=== PATIENT | male | born 1950 | race Caucasian/White ===

== ENCOUNTER 2017-03-31 06:38 | Day surgery (SDC) | payer MEDICARE, MEDICAID ==
[~2017-03-31] VITALS: Ht 180.3 cm; Wt 106.5 kg
[2017-03-31] VITALS (7 sets, daily range): BP systolic 119–128; BP diastolic 75–79; PULSE 50–58; RESP 17–18; TEMP 97.8–98.5; O2SAT 97–100
[~2017-03-31 06:38] MED LIST: ASPI81TA82 PO; CARV6.252 PO; ENAL20TA PO; GLYB5TAB3 PO; HYDR12.56 PO; NITR4.9S3 SL; TICA90 PO
[2017-03-31] MEDS ORDERED: NS 1000P @30 MLS/HR (KVO) IV SCH (07:00)
[2017-03-31] MEDS ORDERED: AMLO5TAB2 PO (07:20)
[2017-03-31] MEDS ORDERED: BUSP15TA PO (07:20)
[2017-03-31] MEDS ORDERED: GLIM2TAB PO (07:20)
[2017-03-31] MEDS ORDERED: [UNRECOGNIZED DRUG - CODE] PO (07:20)
[2017-03-31] MEDS ORDERED: ENAL20TA PO (07:20)
[2017-03-31] MEDS ORDERED: CARV12.52 PO (07:20)
[2017-03-31] MEDS ORDERED: PROB1CAP12 PO (07:20)
[2017-03-31] MEDS ORDERED: FLUO40CA PO (07:20)
[2017-03-31] MEDS ORDERED: HYDR12.57 PO (07:20)
[2017-03-31] MEDS ORDERED: ASPI-110 PO (07:20)
[2017-03-31] MEDS ORDERED: PLAV75TA29 PO (07:20)
[2017-03-31 07:26] LABS: AUTOMATED NEUTROPHIL # 3.9 TH/MM3 (1.8-7.7); BASOPHIL # 0.1 TH/MM3 (0-0.2); BASOPHIL % 1.1 % (0.0-2.0); EOSINOPHIL # 0.2 TH/MM3 (0-0.4); EOSINOPHIL % 2.8 % (0.0-4.0); HEMATOCRIT 41.2 % (39.0-51.0); HEMO FLAGS DIFF FINAL; LYMPH % 32.3 % (9.0-44.0); LYMPHOCYTE # 2.5 TH/MM3 (1.0-4.8); MEAN CELL VOLUME 90.7 FL (80.0-100.0); MEAN CORPUSCULAR HEMOGLOBIN 29.4 PG (27.0-34.0); MEAN CORPUSCULAR HGB CONC 32.4 % (32.0-36.0); MONO % 13.6 % (0.0-8.0); NEUT % 50.2 % (16.0-70.0); PLATELET COUNT 236 TH/MM3 (150-450); RED BLOOD COUNT 4.54 MIL/MM3 (4.50-5.90); RED CELL DISTRIBUTION WIDTH 13.5 % (11.6-17.2); WHITE BLOOD COUNT 7.7 TH/MM3 (4.0-11.0)
[2017-03-31 07:34] LABS: APTT (PATIENT) 27.3 SEC (24.3-30.1); PROTHROMBIN TIME - PATIENT 11.2 SEC (9.8-11.6)
[2017-03-31 07:41] LABS: BICARBONATE 26.4 MEQ/L (21.0-32.0); POTASSIUM 4.1 MEQ/L (3.5-5.1)
[2017-03-31] MEDS ORDERED: HEPARIN-NS/PF INJ 500 ML ONE (08:25)
[2017-03-31] MEDS ORDERED: MIDAZOLAM HCL 2 MG/2 ML VIAL ONE (08:34)
[2017-03-31] MEDS ORDERED: VERAPAMIL HCL 5 MG/2 ML VIAL ONE (08:51)
[2017-03-31] MEDS ORDERED: HEPARIN SODIUM - IV 10,000 UNITS/10 ML VIAL ONE (08:51)
[2017-03-31] MEDS ORDERED: IOHEXOL 350 MG/ML 100 ML BTL (for Cath Lab) OTHER ONE (08:55)
[2017-03-31] MEDS ORDERED: IOHEXOL 350 MG/ML 50 ML BTL (for Cath Lab) OTHER ONE (08:55)
[2017-03-31] MEDS ORDERED: TIROFIBAN INFUSION INJ 250 ML IV ONE (09:22)
[2017-03-31] MEDS ORDERED: CLOPIDOGREL 300 MG TAB ONE (09:38)
[2017-03-31] MEDS ORDERED: SODIUM CHLOR 0.9% 1000 ML INJ 1,000 ML IV SCH (09:50)
[2017-03-31] MEDS ORDERED: TIROFIBAN INFUSION INJ 250 ML IV SCH (09:50)
--- NOTE | 2017-03-31 09:51 | CATHPROC ---
[employer] HIS Report Study Information Study Number Admission Scheduled Start Study Start [id number] Mar 31 2017 6:38AM 03/31/2017 Mar 31 2017 8:07AM [facility] Catheterization Admit Source Facility Department Other [facility] - Upfitter Physician and Clinical Staff Initial Elvin Rios Yardage Caller jP RN, Stephen Recorder Danyel Brooke,PIPE LINER(BS) Scrub Petty Shields,RT(R) (BS) Procedures Performed Procedure Location (Site) Vessel Name Coronary Angiograms LCA Left Coronary Coronary Angiograms RCA Right Coronary Drug Eluting Inflatio CIRC Dist CIRC L Heart Cath LV Gram-hand inj. LV LV Ventricle Wire insertion Fem Art (right) Femoral Art Equipment Time Drive In Teller Description Size Mfg Part Number Used/Scraped [id number] 09:25 PAK CRITICAL CARE WIRE, [employer] PROWATER 180CM 180CM Used *[id number] TRANSDUCER, TRUWAVE [id number] 08:34 WILSON JONES * Used W/STOCKCOCK *[id number] [id number] *[id number] 534-623T *[id number] [id number] *[id number] *[id number] 08:34 MALLINCKRODT SYRINGE, ANGIOMAT 150ML 150ML *[id number] Used 2S MEDICAL CONCEPT DRAPE, RADIAL FEMORAL FULL 08:34 * [id number] *[id number] Used DEVELOPMENT BODY [id number] 08:34 [employer] IND[employer]ES PACK, CCL CUSTOM * Used *[id number] 08:34 [employer] SUPPORT, ARTERIAL ADULT [id number] Used [id number] 08:34 MEDLINE PACER PEN, SKIN DUAL W/ RULER * Used *[id number] STENT, 2.25 12 RESOLUTE [id number] 09:31 MEDTRONIC 2.25 12 Used INTEGRITY RX *[id number] 09:32 Face++ 30 HANNA INDEFLATOR Used *[id number] BAND, RADIAL COMPRESSION TR [id number] 09:39 Face++ 24CM Used SHORT 24 *[id number] SHEATH, FR6 RADIAL PRELUDE 08:34 Face++ FR 6 [id number] Used EASE 11CM [id number] 08:34 Face++ WIRE, EXCHANGE 260CM 3MMJ 260CM Used *[id number] 08:34 NAMIC MANIFOLD, 4 PORT * Used *[id number] 08:34 NYCOMED OMNIPAQUE, 350 MG, 150ML 150ML [id number] Used [id number] 08:34 [place] [employer] BL[employer]ET,WARM AIR CCL * Used *[id number] CATHETER, FR5 OPTITORQUE [id number] 09:04 [employer] FR 5 Used RADIAL TIG 4.0 *[id number] Equipment Model, Serial, Lot Number and Expiration Data Description Model Number Serial Number Lot Number Expiration Date STENT, 2.25 12 RESOLUTE [id number] 06-28-2018 INTEGRITY RX History: Current Medications Medication Dosage/Unit Route Frequency Last Date/Time Taken ASA Beta Kali PLAVIX History: Allergies Allergy Reaction No Known Allergies History: Risk Factors Family History of Hypertension Dyslipidemia Previous CT Previous Heart Failure Premature CAD Yes Yes Yes Yes No Prior Valve Prior PCI Prior PCIDate Prior CABG Surgery No Yes 06/26/2016 No Cerebrovascular Peripheral Artery Chronic Lung On Dialysis Diabetes Diabetes Therapy Disease Disease Disease No No No No Yes Oral History: Stress Tests Stress or Imaging Studies Performed No History: Other Current Smoker No Labs Hgb (g/dl) Hct (%) WBC (l/cumm) Platelets (thousands) 11.60-17.00 35.00-51.00 4.00-11.00 150.00-450.00 13.4 41.2 7.7 236 Glucose (mg/dl) BUN (mg/dl) Creatinine (mg/dl) BUN:Creatinine (1:x) 74.00-106.00 7.00-18.00 0.50-1.30 10.00-20.00 135 21 0.9 23.3 Na (meq/l) K (meq/l) 136.00-145.00 3.50-5.10 138 4.1 INR (PTT:PT) 0.90-1.10 1 CPK-MB (ng/ML) 0.50-3.60 Not Drawn Medication Medication Total Dose (Bolus/Oral) Medication Total Dosage/Unit 1% XYLOCAINE 10 mL AGGRASTAT BOLUS 54 mL HEPARIN 4000 units OXYGEN 3 l/min PLAVIX 300 mg RADIAL COCKTAIL 5 mL (Bolus) Medications (Bolus/Oral) Medication Time Given Dosage/Unit Administered By Reason 1% XYLOCAINE 03/31/2017 8:59:40 AM 10 mL Elvin Vergara 10 mL 1% XYLOCAINE given in lab by Elvin Vergara in Right Radial via Subcutaneous. Ordered by Janell Vergara. Ntg 200mcg Verapamil 2.5mg Heparin RADIAL COCKTAIL 03/31/2017 9:02:32 AM 5 mL (Bolus) Elvin Vergara 2500U 5 mL (Bolus) RADIAL COCKTAIL given in lab by Elvin Vergara via Radial. Using [Solution Name]. Ordered by Elvin Vergara. Reason: Ntg 200mcg Heparin 2500U. OXYGEN 03/31/2017 9:03:44 AM 3 l/min Stephen Oliva RN 3 l/min OXYGEN given in lab by Stephen Oliva RN via Nasal. Ordered by Elvin Vergara. HEPARIN 03/31/2017 9:22:00 AM 4000 units Stephen Oliva RN 4000 units HEPARIN given in lab by Stephen Oliva RN in Left Forearm via Peripheral IV. Ordered by Elvin Short. AGGRASTAT BOLUS 03/31/2017 9:25:12 AM 54 mL Stephen Oliva RN 54 mL AGGRASTAT BOLUS given in lab by Stephen Oliva RN in Left Forearm via Peripheral IV. Ordered by Elvin Sharp. PLAVIX 03/31/2017 9:40:00 AM 300 mg Stephen Oliva RN 300 mg PLAVIX given in lab by Stephen Oliva RN via Oral. Ordered by Elvin Vergara. Medication (Drip) Medication Time Given Dosage/Unit Concentration/Unit Diluent (ml) Solution AGGRASTAT DRIP 03/31/2017 9:29:05 AM 0.152 mcg/kg/min 12.5 mg 250 NaCl .9 0.152 mcg/kg/min AGGRASTAT DRIP given in lab by Stephen Oliva RN in Left Forearm via Peripheral IV. Pu mp/Drip Flow = 19.5 ml/hr using NaCl .9 with a concentration of 12.5 mg in 250 ml. Ordered by Elvin Vergara. IV Solutions 03/31/2017 8:24:43 AM 0 mL (IV) 500 NaCl .9 Patient arrived on IV Solutions in Left Forearm via Peripheral IV. Pump/Drip Flow = 20 ml/hr using Na Cl .9. Ordered by Elvin Vergara. Initial Case Assessment Cardiovascular HR Rhythm NIBP Chest Pain 51 SINUS ZEESHAN 129/79 0 Edema Present Skin color Skin None Normal Warm Dry Circulatory - Right Pulses Dorsalis Pedis Femoral Radial d 2 2 Scale (0,1,2,3,4,d) Circulatory - Left Pulses Dorsalis Pedis Femoral Radial d 2 Scale (0,1,2,3,4,d) Circulatory - Lower Extremities Color Lower Right Color Lower Left Normal Normal Neurological State Oriented to time-place- Alert Moves all extremities person Respiration - General Respiration Rate SpO2 (%) (B/min) 16 96 Final Case Assessment Cardiovascular HR Rhythm NIBP Chest Pain 51 SINUS ZEESHAN 107/73 0 Edema Present Skin color Skin None Normal Warm Dry Circulatory - Right Pulses Dorsalis Pedis Femoral Radial d 2 2 Scale (0,1,2,3,4,d) Circulatory - Left Pulses Dorsalis Pedis Femoral Radial d 2 Scale (0,1,2,3,4,d) Circulatory - Lower Extremities Color Lower Right Color Lower Left Normal Normal Neurological State Oriented to time-place- Alert Moves all extremities person Respiration - General Respiration Rate SpO2 (%) (B/min) 16 96 Chronological Log Time Study Chronological Log 8:24:23 Patient arrived via Bed. 8:24:24 Patient Name, D.O.B, / Armband Verified By R.N. 8:24:25 Consent signed by the physician and the patient and verified by the [facility] staff. 8:24:26 Pre-op and post- op instructions given; patient acknowledges understanding of instructions. 8:24:27 Verbal Stimulation=2 Physical Stimulation=2 Airway=2 Respiration=2 TOTAL=8. (0=absent, 1=li mited, 2=present) 8:24:34 Allens test performed on the right radial and ulnar artery. 8:24:38 Patient has been NPO for Less than 6Hrs. 8:24:38 Skin Breakdown- 8:24:39 Patient Warmer Placed on the Table. 8:24:42 A # 20 IV was noted in the Forearm (left). Grade = 0 Patient arrived on IV Solutions in Left Forearm via Peripheral IV. Pump/Drip Flow = 20 ml/hr us ing NaCl .9. Ordered by 8:24:43 Elvin Vergara. 8:24:44 History and physical on the chart or being dictated. Assessment: Initial Case, HR=51 BPM, Rhythm=SINUS ZEESHAN, JGTQ=695/79 mmhg, Chest Pain=0, Edema=N one, Color=Normal, Skin = Warm, Dry Right Pulses: Joshua Ped=d, Femoral=2, Radial=2 Left Pulses: Joshua Ped=d, Femoral=2 8:24:45 Lower Right Extremities: Color=Normal Lower Left Extremities: Color=Normal Neurological: State=Alert, Ox3, ORTEZ Respiration: Resp=16 B/min, SpO2=96 % Vitals capture started with the following parameters, Patient=Adult, Interval=5 min, Initial Pre yrmkj=977 mmHg, 8:30:42 Deflation Rate=5 mmHg 8:31:21 HR=64 bpm, KROL=519/79 mmhg, SpO2=99.0 %, Resp=0 B/min, Pain=0, Su=10, Cote=2 8:36:18 HR=51 bpm, DLFE=122/80 mmhg, SpO2=98.0 %, Resp=14 B/min, Pain=0, Su=10, Cote=2 8:37:21 Reference ECG taken 8:37:56 Bilateral groins prepped with 2% chlorhexidine, and with a 3 min. waiting time. 8:41:17 HR=55 bpm, GCUO=610/83 mmhg, SpO2=98.0 %, Resp=14 B/min, Pain=0, Su=10, Cote=2 8:46:18 HR=53 bpm, VOBQ=556/82 mmhg, SpO2=99.0 %, Resp=7 B/min, Pain=0, Su=10, Cote=2 8:49:00 MD paged 8:51:17 HR=56 bpm, RSTL=320/90 mmhg, SpO2=97.0 %, Resp=10 B/min 8:51:56 Pressure channel 1 zeroed. 8:55:10 MD arrived. 8:56:18 HR=58 bpm, UGPF=939/87 mmhg, Resp=13 B/min, Pain=0, Su=10, Cote=2 Time Out. Correct patient, correct procedure,correct physician, power injector not loaded with c ontrast with surgical 8:59:00 team present. Time Out Concurred by MD, individual staff in procedure 8:59:25 Case Start 8:59:40 10 mL 1% XYLOCAINE given in lab by Elvin Vergara in Right Radial via Subcutaneous. Ordered by Elvin Vergara. 9:00:33 Access site was RIGHT Radial Artery. 9:01:19 HR=52 bpm, UAPF=678/80 mmhg, TaO1=371.0 %, Resp=14 B/min, Pain=0, Su=10, Cote=2 9:02:07 Reference ECG taken A SHEATH, FR6 RADIAL PRELUDE EASE 11CM FR 6 was advanced into the Radial (right) using the Percu taneous 9:02:29 technique. 5 mL (Bolus) RADIAL COCKTAIL given in lab by Elvin Vergara via Radial. Using [Solution Name]. Ord ered by Ursula 9:02:32 Elvin. Reason: Ntg 200mcg Heparin 2500U. A CATHETER, FR5 OPTITORQUE RADIAL TIG 4.0 FR 5 was advanced over a wire. OMNIPAQUE, 350 MG, 150M L 150ML 9:03:03 was used for injections. 9:03:44 3 l/min OXYGEN given in lab by Stephen Oliva RN via Nasal. Ordered by Elvin Vergara. Recorded Pressure: Ao, HR=55, Condition=Condition 1 9:05:01 (Aorta) Ao 87/56/70 9:06:14 The LCA was injected and visualized at various angles. OMNIPAQUE, 350 MG, 150ML 150ML used. 9:06:22 HR=56 bpm, NIBP=95/64 mmhg, SpO2=93.0 %, Resp=12 B/min, Pain=0, Su=10, Cote=2 After removing the current catheter a JR 5.0 INFINITI CATHETER FR 6 was advanced over a WIRE, EX CHANGE 260CM 9:07:48 3MMJ 260CM. 9:11:19 HR=53 bpm, NIBP=92/51 mmhg, Resp=9 B/min, Pain=0, Su=10, Cote=2 After removing the current catheter a CATHETER, FR5 OPTITORQUE RADIAL TIG 4.0 FR 5 was advanced over a WIRE, 9:12:32 EXCHANGE 260CM 3MMJ 260CM. After removing the current catheter a AR MOD INFINITI CATHETER FR 6 was advanced over a WIRE, EX CHANGE 260CM 9:15:48 3MMJ 260CM. 9:16:18 HR=49 bpm, SFGL=741/57 mmhg, SpO2=98.0 %, Resp=7 B/min, Pain=0, Su=10, Cote=2 9:18:33 The RCA was injected and visualized at various angles. OMNIPAQUE, 350 MG, 150ML 150ML used. After removing the current catheter a MPA-2 INFINITI CATHETER FR 6 was advanced over a WIRE, EXC HANGE 260CM 9:20:10 3MMJ 260CM. 9:20:20 The LV was manually injected with 8 cc's and visualized. OMNIPAQUE, 350 MG, 150ML 150ML used . 9:21:17 HR=61 bpm, ZFDG=583/74 mmhg, SpO2=98.0 %, Resp=13 B/min, Pain=0, Su=10, Cote=2 Recorded Pressure: LV, HR=55, Condition=Condition 1 9:21:42 (Left Ventricle) LV 103/7/12 9:22:00 4000 units HEPARIN given in lab by Stephen Oliva RN in Left Forearm via Peripheral IV. Ordere d by Elvin Vergara. Recorded Pressure: LV, Ao, HR=56, Condition=Condition 1 9:22:06 (Left Ventricle) LV 106/6/14, (Aorta) Ao 99/62/78 After removing the current catheter a XB 3.5 GUIDE CATHETER FR 6 was advanced over a WIRE, EXCHA NGE 260CM 9:22:48 3MMJ 260CM. 9:25:12 54 mL AGGRASTAT BOLUS given in lab by Stephen Oliva RN in Left Forearm via Peripheral IV. Ord ered by Elvin Vergara. 9:26:25 HR=56 bpm, NIBP=97/62 mmhg, SpO2=99.0 %, Resp=12 B/min, Pain=0, Su=10, Cote=2 9:28:12 A WIRE, ASAHI PROWATER 180CM 180CM was inserted via Fem Art (right). 0.152 mcg/kg/min AGGRASTAT DRIP given in lab by Stephen Oliva RN in Left Forearm via Peripheral I V. Pump/Drip Flow 9:29:05 = 19.5 ml/hr using NaCl .9 with a concentration of 12.5 mg in 250 ml. Ordered by Elvin Vergara. 9:30:13 Interventional wire has crossed the lesion 9:31:19 HR=52 bpm, DINN=796/63 mmhg, Resp=12 B/min, Pain=0, Su=10, Cote=2 A STENT, 2.25 12 RESOLUTE INTEGRITY RX 2.25 12 was advanced through a XB 3.5 GUIDE CATHETER FR 6 over a 9:31:39 WIRE, [employer] PROWATER 180CM 180CM. A STENT, 2.25 12 RESOLUTE INTEGRITY RX 2.25 12 was deployed using a 30 HANNA INDEFLATOR at 14 atmo spheres 9:31:40 for 20 seconds in the CIRC Dist. 9:32:00 Activated Clotting Time Drawn 9:33:42 Delivery device removed 9:34:51 Wire removed 9:34:53 Catheter was removed 9:36:14 ACT (Normal Range 90-180) = 411 9:36:19 HR=56 bpm, VQFF=020/73 mmhg, AaM0=903.0 %, Resp=12 B/min, Pain=0, Su=10, Cote=2 9:36:53 Case End Assessment: Final Case, HR=51 BPM, Rhythm=SINUS ZEESHAN, GWLU=698/73 mmhg, Chest Pain=0, Edema=Non e, Color=Normal, Skin = Warm, Dry Right Pulses: Joshua Ped=d, Femoral=2, Radial=2 Left Pulses: Joshua Ped=d, Femoral=2 9:37:03 Lower Right Extremities: Color=Normal Lower Left Extremities: Color=Normal Neurological: State=Alert, Ox3, ORTEZ Respiration: Resp=16 B/min, SpO2=96 % Radial Compression Device Used. 17 mLs of air placed in BAND, RADIAL COMPRESSION TR SHORT 24 24C M. Affected 9:38:41 hand ~O2 SATURATION~ % O2 saturation. 9:38:55 Sterile dressing applied to site 9:38:56 No case complications noted. 9:38:57 Cine recording checked. 9:39:08 Bedside Report will be given. 9:39:09 Implantable Device card placed in patient's chart. 9:39:12 Contrast Scanned 9:39:16 A Left Heart Cath was performed. 9:40:00 Activated Clotting Time Drawn 9:40:00 300 mg PLAVIX given in lab by Stephen Oliva RN via Oral. Ordered by Elvin Vergara. 9:41:50 HR=56 bpm, ARTG=492/77 mmhg, SpO2=93.0 %, Resp=3 B/min, Pain=0, Su=10, Cote=2 9:42:31 ACT (Normal Range 90-180) = 280 9:47:35 Patient moved to stretcher 9:47:38 Vitals capture stopped. End Study - Contrast Media Used In Study Contrast Total Opened (mL) Total Used (mL) Total Wasted (mL) Omnipaque 120 120 0 End Study - Maximum Contrast Load Max Contrast Load (mL) 592.2 End Study - Radiation Exposure Fluoro Time (minutes) 13.6 End Study - Patient Disposition Complications Transferred To Interventional Outcome No Telemetry Bed successful
[2017-03-31] MEDS ORDERED: SODIUM CHLORIDE 0.9% FLUSH 5 ML FLUSH IVF PRN (10:00)
--- NOTE | 2017-03-31 11:09 | MA ---
cc: KVNG ISAACS M.D. DATE: 03/31/2017 PROCEDURE Left heart catheterization, selective coronary angiography, left ventriculography, primary stenting of the left circumflex. PROCEDURE NOTE The patient was brought to the cardiac catheterization laboratory in a fasting state after having signed informed consent. The right radial region was prepped and draped as per policy and anesthetized with 1% lidocaine. Arterial access was obtained via the right radial artery and a 6-Georgian sheath placed. Coronary arteriography was performed using a [place] catheter. Left ventriculography was done using a multipurpose catheter. Percutaneous coronary intervention was done as described below. There were no apparent immediate complications. HEMODYNAMIC DATA Left ventricle 106 with an end-diastolic pressure of 14. Aorta 99/62 with a mean of 78. There was no significant transvalvular aortic gradient on pullback of the pigtail catheter. CORONARY ARTERIOGRAPHY The left main is a large vessel with minimal distal disease. The left anterior descending demonstrates either one of two stents proximally. There is minimal restenosis of the stents. In the proximal and mid LAD there are minimal diffuse luminal irregularities. The very, very distal LAD, at the apex, has 50% stenosis. There is a medium-sized branching ramus intermedius which has a stent in its more lateral branch, and the stent is widely patent. There is diffuse proximal disease in the more medial branch of the ramus intermedius. The left circumflex is a medium-sized vessel demonstrating a stent in its distal portion. The stent is widely patent. Just prior to the stent the distal left circumflex has 70% stenosis. Near the ostium of the left circumflex there is 30% stenosis. The right coronary artery is a medium-sized dominant vessel with diffuse proximal disease resulting in up to 50% stenosis. The rest of the vessel has minimal luminal irregularities. LEFT VENTRICULOGRAPHY Contrast injection of the left ventricle reveals no segmental wall motion abnormalities. Ejection fraction is estimated at 55%. PERCUTANEOUS CORONARY INTERVENTION DESCRIPTION Adequate heparin was given during the procedure to achieve an ACT greater than 250 seconds. Aggrastat was given as per protocol. Using a 6-Georgian XB 3.5 guiding catheter the ostium of the left main was re-engaged. Using a 0.014 [place]ater guidewire the distal left circumflex disease was crossed without difficulty and the tip of the wire positioned distally. Primary stenting of the lesion was done using a 2.25 x 12-mm Resolute stent which was deployed at 14 atmospheres for 40 seconds. Final angiography shows overall good results with reduction of the initial stenosis to roughly 0% residual with no definite evidence for dissection or distal embolization. The patient tolerated the procedure well. There were no apparent immediate complications. CONCLUSIONS 1. Moderate to severe two-vessel coronary artery disease. 2. Right dominant system. 3. Status post primary stenting of the distal left circumflex. 4. Normal left ventricular function with estimated ejection fraction of 55%. MD ADRYAN Almanza/TLJuan /9:48 AM /10:56 AM MTDMarin
[2017-03-31] MEDS ORDERED: ATROPINE SULFATE 1 MG/10 ML SYRINGE IV PUSH ONE (11:20)
[2017-03-31] MEDS ORDERED: ATROPINE SULFATE 1 MG/10 ML SYRINGE ONE (11:30)
[2017-03-31] MEDS ORDERED: BENZOCAINE-MENTHOL (SUGAR FREE) 15 MG-3.6 MG LOZENGE BUCCAL PRN (13:15)
[2017-03-31] MEDS: GLIMEPIRIDE 2 MG TAB PO SCH (17:24)
--- NOTE | 2017-03-31 18:09 | EKG ---
Date Performed: 03/31/2017 Time Performed: 07:23:12 PTAGE: 66 years EKG: Sinus bradycardia. Inferior and lateral ST elevation - possible early repolarization Border line ECG PREVIOUS TRACING : 07/08/2016 23.23 Compared to prior tracing no significant change DOCTOR: Rupinder Bowser Interpretating Date/Time 03/31/2017 18:08:09
--- NOTE | 2017-03-31 18:09 | EKG ---
Date Performed: 03/31/2017 Time Performed: 10:06:00 PTAGE: 66 years EKG: Sinus bradycardia with borderline 1st degree A-V block. (9@128) suggests early repolarizati on Borderline ECG PREVIOUS TRACING : 03/31/2017 07.23 Compared to prior tracing no significant change DOCTOR: Rupinder Bowser Interpretating Date/Time 03/31/2017 18:08:24
[2017-03-31] MEDS ORDERED: TEMAZEPAM 15 MG CAP PO PRN (21:00)
[2017-03-31] MEDS: CARVEDILOL 12.5 MG TAB PO SCH (21:17)
[2017-03-31] MEDS: busPIRone HCL 5 MG TAB PO SCH (21:18)
[2017-04-01] VITALS (8 sets, daily range): BP systolic 103–117; BP diastolic 63–68; PULSE 50–60; RESP 18; TEMP 98.3–98.6; O2SAT 94–99
[2017-04-01 04:42] LABS: AUTOMATED NEUTROPHIL # 4.7 TH/MM3 (1.8-7.7); BASOPHIL # 0.1 TH/MM3 (0-0.2); BASOPHIL % 0.8 % (0.0-2.0); EOSINOPHIL # 0.3 TH/MM3 (0-0.4); EOSINOPHIL % 2.8 % (0.0-4.0); HEMATOCRIT 36.9 % (39.0-51.0); HEMO FLAGS DIFF FINAL; LYMPH % 32.8 % (9.0-44.0); MEAN CELL VOLUME 90.2 FL (80.0-100.0); MEAN CORPUSCULAR HEMOGLOBIN 30.6 PG (27.0-34.0); MEAN CORPUSCULAR HGB CONC 33.9 % (32.0-36.0); MONO % 11.3 % (0.0-8.0); NEUT % 52.3 % (16.0-70.0); PLATELET COUNT 231 TH/MM3 (150-450); RED BLOOD COUNT 4.09 MIL/MM3 (4.50-5.90); RED CELL DISTRIBUTION WIDTH 13.4 % (11.6-17.2)
[2017-04-01 05:21] LABS: BICARBONATE 29.9 MEQ/L (21.0-32.0); HDL CHOLESTEROL 32.3 MG/DL (40.0-60.0); POTASSIUM 3.7 MEQ/L (3.5-5.1)
[2017-04-01] MEDS: GLIMEPIRIDE 2 MG TAB PO SCH (06:38)
--- NOTE | 2017-04-01 07:51 | PD.CARD.PN ---
Subjective Subjective Remarks Denies wrist pain, CP, dyspnea, dizziness. Objective Medications Item Value Date Time Aspirin 325 mg 04/01/17 09 (Aspirin) DAILY/PO Amlodipine 5 mg 04/01/17 0900 Besylate DAILY/PO (Norvasc) Clopidogrel 75 mg 04/01/17 09 Bisulfate DAILY/PO (Plavix) Enalapril Maleate 20 mg 04/01/17 0900 (Vasotec) DAILY/PO Hydrochlorothiazide 12.5 mg 04/01/17 0900 (Microzide) DAILY/PO Carvedilol 12.5 mg 03/31/172099 (Coreg) BID/PO 03/31/172116 Vital Signs / I&O Vital Signs Date Time Temp Pulse Resp B/P Pulse Ox O2 Delivery O2 Flow Rate FiO2 04/01/17 06:00 56 04/01/17 05:00 52 04/01/17 04:00 52 04/01/17 04:00 98.6 53 18 117/67 98 04/01/17 03:00 58 04/01/17 02:00 54 04/01/17 01:00 60 04/01/17 00:00 53 04/01/17 00:00 98.6 59 18 103/63 94 03/31/17 23:00 54 03/31/17 22:00 52 03/31/17 21:00 52 03/31/17 20:00 54 03/31/17 20:00 98.5 58 18 128/75 97 03/31/17 19:00 58 03/31/17 15:00 97.8 51 17 124/79 100 03/31/17 15:00 52 03/31/17 10:03 99 Room Air I/O 03/31/17 03/31/17 03/31/17 04/01/17 04/01/17 04/01/17 07:00 15:00 23:00 07:00 15:00 23:00 Intake Total 980 ml 480 ml Output Total 325 ml Balance 655 ml 480 ml Intake Oral 480 ml 480 ml IV Total 500 ml Output Urine Total 325 ml # Voids 3 # Bowel Movements 0 0 Physical Exam GENERAL: Well developed, well nourished. No acute distress. HEENT: Jugular venous pressure is normal. CHEST: Lungs clear to auscultation bilaterally. Unlabored respiratory effort. CARDIAC: Regular rate and rhythm without S3, S4. II/ ZACKERY base. Normal S2. ABDOMEN: Soft, nontender, no hepatosplenomegaly. Bowel sounds present. EXTREMITIES: No clubbing, cyanosis, or edema. Right radial arteriotomy site stable, no hematoma. Normal radial pulse. Laboratory Laboratory Tests Test 04/01/17 04:01 White Blood Count 9.0 TH/MM3 Red Blood Count 4.09 MIL/MM3 Hemoglobin 12.5 GM/DL Hematocrit 36.9 % Mean Corpuscular Volume 90.2 FL Mean Corpuscular Hemoglobin 30.6 PG Mean Corpuscular Hemoglobin 33.9 % Concent Red Cell Distribution Width 13.4 % Platelet Count 231 TH/MM3 Mean Platelet Volume 8.2 FL Neutrophils (%) (Auto) 52.3 % Lymphocytes (%) (Auto) 32.8 % Monocytes (%) (Auto) 11.3 % Eosinophils (%) (Auto) 2.8 % Basophils (%) (Auto) 0.8 % Neutrophils # (Auto) 4.7 TH/MM3 Lymphocytes # (Auto) 3.0 TH/MM3 Monocytes # (Auto) 1.0 TH/MM3 Eosinophils # (Auto) 0.3 TH/MM3 Basophils # (Auto) 0.1 TH/MM3 CBC Comment DIFF FINAL Differential Comment Sodium Level 141 MEQ/L Potassium Level 3.7 MEQ/L Chloride Level 106 MEQ/L Carbon Dioxide Level 29.9 MEQ/L Anion Gap 5 MEQ/L Blood Urea Nitrogen 15 MG/DL Creatinine 0.88 MG/DL Estimat Glomerular Filtration 87 ML/MIN Rate Random Glucose 161 MG/DL Calcium Level 8.2 MG/DL Total Creatine Kinase 70 U/L Triglycerides Level 198 MG/DL Cholesterol Level 173 MG/DL LDL Cholesterol 101 MG/DL HDL Cholesterol 32.3 MG/DL Cholesterol/HDL Ratio 5.35 RATIO Assessment and Plan Problem List: (1) CAD (coronary artery disease) Assessment and Plan: Doing well s/p stent of left circumflex yesterday. Right radial arteriotomy site OK. AM labs OK. To discharge home, same home medications including Plavix, ad yisel activity, 3-4 week f/u with me. (2) Hypertension Assessment and Plan: Stable. Normotensive. (3) Hyperlipidemia Assessment and Plan: Suboptimal lipid profile. Unfortunately patient statin intolerant. Will consider trying Livalo as outpatient. Code Status full code Discussed Condition With patient Problem Qualifiers (1) CAD (coronary artery disease): Qualified Code: I25.110 - Coronary artery disease involving [place] coronary artery of [place] heart with unstable angina pectoris (2) Hypertension: Qualified Code: I10 - Essential hypertension (3) Hyperlipidemia: Qualified Code: E78.2 - Mixed hyperlipidemia Elvin Vergara MD Apr 01, 2017 07:51
[2017-04-01] MEDS ORDERED: ASPI325T PO (07:54)
[2017-04-01] MEDS ORDERED: PLAV75TA29 PO (07:54)
[2017-04-01] MEDS: busPIRone HCL 5 MG TAB PO SCH (08:05)
[2017-04-01] MEDS: CARVEDILOL 12.5 MG TAB PO SCH (08:05)
[2017-04-01] MEDS ORDERED: CLOPIDOGREL 75 MG TAB PO SCH ×2 (09:00)
[2017-04-01] MEDS ORDERED: HYDROCHLOROTHIAZIDE 12.5 MG CAP PO SCH (09:00)
[2017-04-01] MEDS ORDERED: ASPIRIN 325 MG TAB PO SCH (09:00)
[2017-04-01] MEDS ORDERED: ENALAPRIL MALEATE 10 MG TAB PO SCH (09:00)
[2017-04-01] MEDS ORDERED: amLODIPine BESYLATE 5 MG TAB PO SCH (09:00)
== END 2017-04-01 10:36 | disposition home or self-care (01) ==
LOC: HDOC 06:38 → HDIC 06:39 → HCIS 13:54 → HDOC 04-01 10:36
PROVIDERS: ATTEND Internal Medicine Cardiovascular Disease
DX: I25.119 Atherosclerotic heart disease of native coronary artery with unspecified angina pectoris (principal); F41.9 Anxiety disorder, unspecified; E78.5 Hyperlipidemia, unspecified; I10 Essential (primary) hypertension; D64.9 Anemia, unspecified; E83.51 Hypocalcemia; Z79.82 Long term (current) use of aspirin
CPT/HCPCS: 80048; 80061; 82550; 82948; 85002; 85025; 85610; 85730; 92928; 93005; 93458; C1769; C1874; C1887; C1893; J0461; J1644; J2250; J3010; J3246; J7030; Q9967